=== PATIENT | female | born 1985 | race Caucasian/White ===

== ENCOUNTER → 2021-02-11 | Outpatient (CLI) | payer OTHER ==
[~2021-02-11] MED LIST: COLACE 100MG C100 MG PO
[2021-02-11 16:25] LABS: HEMOGLOBIN 13.5 gm/dl (12.3-15.3); RED BLOOD COUNT 5.01 M/UL (4.00-5.10); WHITE BLOOD COUNT 9.4 K/UL (4.5-11.0)
[2021-02-11 16:35] LABS: BUN/CREATININE RATIO 12 (0-10)
[2021-02-12 09:14] LABS: VITAMIN D, 25-HYDROXY 27.4 ng/mL (30.0-100.0)
[2021-02-12 11:15] LABS: THYROXINE (T4) 6.9 ug/dL (4.5-12.0)
== END ==
LOC: LAB 14:48
PROVIDERS: Nurse Practitioner Family
DX: R53.82 Chronic fatigue, unspecified (principal); L71.9 Rosacea, unspecified; M54.5 Low back pain; L65.9 Nonscarring hair loss, unspecified; E28.2 Polycystic ovarian syndrome
CPT/HCPCS: 80053; 80061; 81001; 83036; 84436; 84443; 84480; 85025

== ENCOUNTER → 2021-03-12 | Outpatient (CLI) | payer OTHER ==
[2021-03-13 08:15] LABS: THYROXINE (T4) 6.4 ug/dL (4.5-12.0); VITAMIN D, 25-HYDROXY 39.8 ng/mL (30.0-100.0)
== END ==
LOC: LAB 06:36
PROVIDERS: Nurse Practitioner Family
DX: E78.5 Hyperlipidemia, unspecified (principal); E03.9 Hypothyroidism, unspecified; E55.9 Vitamin D deficiency, unspecified
CPT/HCPCS: 36415; 80061; 84436; 84443; 84480

== ENCOUNTER → 2021-04-15 | Outpatient (CLI) | payer OTHER ==
[2021-04-17 08:14] LABS: THYROXINE (T4) 7.1 ug/dL (4.5-12.0)
== END ==
LOC: LAB 16:25
PROVIDERS: Nurse Practitioner Family
DX: E03.9 Hypothyroidism, unspecified (principal); M25.551 Pain in right hip
CPT/HCPCS: 36415; 73522; 84436; 84443; 84480

== ENCOUNTER → 2021-11-12 | Outpatient (CLI) | payer BC ==
[2021-11-12 17:41] LABS: HEMOGLOBIN 13.6 gm/dl (12.3-15.3); RED BLOOD COUNT 4.97 M/UL (4.00-5.10); WHITE BLOOD COUNT 9.2 K/UL (4.5-11.0)
[2021-11-12 18:03] LABS: BUN/CREATININE RATIO 11 (0-10)
[2021-11-14 09:15] LABS: THYROXINE (T4) 8.2 ug/dL (4.5-12.0)
== END ==
LOC: LAB 17:03
PROVIDERS: Nurse Practitioner Family
DX: M54.50 Low back pain, unspecified (principal); F41.1 Generalized anxiety disorder; E28.2 Polycystic ovarian syndrome; E03.9 Hypothyroidism, unspecified; R53.82 Chronic fatigue, unspecified; E55.9 Vitamin D deficiency, unspecified; M48.061 Spinal stenosis, lumbar region without neurogenic claudication
CPT/HCPCS: 36415; 72100; 80053; 80061; 83036; 84436; 84439; 84443; 84480; 85025

== ENCOUNTER → 2022-03-25 | Outpatient (CLI) | payer BC, OTHER ==
[2022-03-25 11:21] LABS: HEMOGLOBIN 13.8 gm/dl (12.3-15.3); RED BLOOD COUNT 5.02 M/UL (4.00-5.10); WHITE BLOOD COUNT 8.3 K/UL (4.5-11.0)
[2022-03-25 12:49] LABS: BUN/CREATININE RATIO 13 (0-10)
== END ==
LOC: LAB 10:52
PROVIDERS: Nurse Practitioner Family
DX: F41.1 Generalized anxiety disorder (principal); E78.5 Hyperlipidemia, unspecified; E28.2 Polycystic ovarian syndrome; R53.83 Other fatigue; E55.9 Vitamin D deficiency, unspecified
CPT/HCPCS: 36415; 80053; 80061; 83036; 84443; 85025